=== PATIENT | female | born 1985 | race Caucasian/White ===

== ENCOUNTER 2017-04-01 23:34 | Emergency (ER) | payer BC, MEDICAID ==
[2017-04-01 23:53] VITALS: BP 161/121
--- NOTE | 2017-04-02 00:53 | EDM.PDOC ---
ED HPI GENERAL MEDICAL PROBLEM - General Chief Complaint: General Stated Complaint: "drainage from incision" Time Seen by Provider: 04/02/17 00:10 - History of Present Illness INITIAL COMMENTS - FREE TEXT/NARRATIVE: Patient had nine days ago with post-op wound vac. This was removed three days ago. Within the last 24 hours, patient has developed redness and swelling of anterior abdominal wall and profuse drainage from the left side of the incision. Onset: Gradual Onset Date: 03/31/17 Duration: Day(s): Location: Reports: Abdomen Quality: Reports: Ache Severity: Mild Improves with: Reports: None Worsens with: Reports: None Context: Reports: Other (C section nine days ago) Associated Symptoms: Reports: No Other Symptoms, Fever/Chills Left Abdomen Pain Score (Numeric/FACES): 5 - Related Data Allergies Allergy/AdvReac Type Severity Reaction Status Date / Time amoxicillin [Amoxicillin] Allergy Rash Verified 04/01/17 23:38 cefaclor [From Ceclor] Allergy Rash Verified 04/01/17 23:38 Penicillins Allergy Rash Verified 04/01/17 23:38 Home Meds: Home Meds oxyCODONE HCl/Acetaminophen [oxyCODONE-Acetaminophen 5-325] 1 - 2 tab PO Q6H PRN 04/01/17 [History] 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: , 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 - Past Surgical History HEENT Surgical History: Reports: Adenoidectomy, Oral Surgery, Tonsillectomy GI Surgical History: Reports: Cholecystectomy Female Surgical History: Reports: Section Social & Family History - Family History Family Medical History: Noncontributory - Tobacco Use Smoking Status *Q: Never Smoker Second Hand Smoke Exposure: No - Caffeine Use Caffeine Use: Reports: Coffee, Tea - Recreational Drug Use Recreational Drug Use: No ED ROS GENERAL - Review of Systems Review Of Systems: See Below Constitutional: Reports: Fever HEENT: Reports: No Symptoms Respiratory: Reports: No Symptoms Cardiovascular: Reports: No Symptoms Endocrine: Reports: No Symptoms GI/Abdominal: Reports: Abdominal Pain : Reports: No Symptoms Musculoskeletal: Reports: No Symptoms Skin: Reports: Erythema (redness and drainage from c section abdominal incision) Neurological: Reports: No Symptoms Psychiatric: Reports: No Symptoms Hematologic/Lymphatic: Reports: No Symptoms Immunologic: Reports: No Symptoms ED EXAM, GENERAL - Physical Exam Exam: See Below Exam Limited By: No Limitations General Appearance: Alert, WD/WN, No Apparent Distress Eye Exam: Bilateral Eye: EOMI, PERRL Ears: Normal External Exam, Normal Canal, Hearing Grossly Normal, Normal TMs Ear Exam: Bilateral Ear: Auricle Normal, Canal Normal, TM normal Nose: Normal Inspection, Normal Mucosa, No Blood Throat/Mouth: Normal Inspection, Normal Lips, Normal Teeth, Normal Gums, Normal Oropharynx, Normal Voice, No Airway Compromise Head: Atraumatic, Normocephalic Neck: Normal Inspection, Supple, Non-Tender, Full Range of Motion Respiratory/Chest: No Respiratory Distress, Lungs Clear, Normal Breath Sounds Cardiovascular: Normal Peripheral Pulses, Regular Rate, Rhythm, No Edema, No Gallop, No JVD, No Murmur, No Rub GI/Abdominal: Normal Bowel Sounds (patient has low anterior horizontal C- section incision with nabor. There is dehisence of several nabor on the left side with fairly profuse, serosanguinous cloudy drainage. The Lower abdominal wall is erythematous with induration especially on the left side of the incision. The area of cellulitis and induration extends about 8+ inches above the incision across the whole anterior abdominal wall. The periphery is marked. Tender with palpation. ) (Female) Exam: Deferred Rectal (Female) Exam: Deferred Back Exam: Normal Inspection Extremities: Normal Inspection, Normal Range of Motion, Non-Tender, Normal Capillary Refill, No Pedal Edema Neurological: Oriented, Normal Cognition, Normal Gait Psychiatric: Normal Affect, Normal Mood Skin Exam: Warm, Dry, Erythema, Wound/Incision, Other (see note above) Lymphatic: No Adenopathy Course - Vital Signs Last Recorded V/S: Last Vital Signs Temp 37.7 C 04/01/17 23:42 Pulse 94 04/01/17 23:42 Resp 18 04/01/17 23:42 BP 161/121 H 04/01/17 23:42 Pulse Ox 96 04/01/17 23:42 - Orders/Labs/Meds Labs: Laboratory Tests 04/02/17 04/02/17 Range/Units 01:00 01:00 WBC 13.3 H (5.0-10.0) 10^3/uL RBC 3.76 L (4.00-5.50) 10^6/uL Hgb 10.6 L (12.0-16.0) g/dL Hct 36.4 L (37.0-47.0) % MCV 96.8 H (82.0-94.0) fL MCH 28.2 (27.0-32.0) pg MCHC 29.1 L (33.0-38.0) g/dL RDW Coeff of Sravanthi 14.1 (11.0-15.0) % Plt Count 418 H (150-400) 10^3/uL Neut % (Auto) 78.2 (35-85) % Lymph % (Auto) 13.3 (10-55) % [place] % (Auto) 6.3 (0-16) % Eos % (Auto) 1.9 (0-5) % Baso % (Auto) 0.3 (0-3) % Neut # (Auto) 10.41 H (1.80-7.00) 10^3/uL Lymph # (Auto) 1.77 (1.00-4.80) 10^3/uL [place] # (Auto) 0.84 H (0.00-0.80) 10^3/uL Eos # (Auto) 0.25 (0.00-0.45) 10^3/uL Baso # (Auto) 0.04 10^3/uL Sodium 142 (136-145) mEq/L Potassium 3.7 (3.5-5.0) mEq/L Chloride 107 H (98-106) mEq/L Carbon Dioxide 24 (21-32) mmol/L BUN 11 (7-18) mg/dL Creatinine 1.0 (0.6-1.0) mg/dL Est Cr Clr Drug Dosing 99.98 mL/min Estimated GFR (MDRD) > 60 (>=60) mL/min Glucose 117 H (75-99) mg/dL Calcium 8.6 (8.4-10.1) mg/dL C-Reactive Protein 27.3 H (0.2-0.8) mg/dL Meds: Medications Discontinued Medications Generic Name Dose Route Start Last Admin Trade Name Freq PRN Reason Stop Dose Admin Levofloxacin/Dextrose 750 mg/ 150 mls @ 100 mls/hr 04/02/17 01:10 04/02/17 01 :15 Premix IV 04/02/17 02:39 100 mls/hr ONETIME ONE Administration - Re-Assessments/Exams Free Text/Narrative Re-Assessment/Exam: 04/02/17 01:29 Labs ordered but were unable to draw blood due to difficult vein access. The area of drainage between the loosened staple was thoroughly cleansed with betadyne and alcohol and a would culture was obtained . The sterile swab was able to be easily inserted 1/2 inch into the opening and let loose a small gush of serosanguinous purulent discharge. IV was started and patient given [id number] mg IV. I contacted [facility] as patients surgery had been done there by Dr Roy. Dr Ashley Charles was covering for surgery and agreed to accept the patient in transfer. Risks versus benefits of transfer discussed with patient. Benefits include transfer to a hospital with surgical coverage which is not available here. Risks include travel problems, weather issues and deterioration in condition during transfer. Patient verbalized understanding of this information. Departure - Departure Time of Disposition: 03:45 Disposition: DC/Tfer to [facility] Condition: Good Clinical Impression: Postoperative wound infection Qualifiers: Encounter type: initial encounter Qualified Code(s): T81.4XXA - Infection following a procedure, initial encounter - Discharge Information Referrals: Marlen Pulido PA [Family Provider] - Forms: ED Department Discharge Additional Instructions: Go directly to [facility]. You will see Dr Charles there. She is the program manager environmental planning surgeon and will evaluate you there. Please do not eat or drink anything along the way in case you need to be sedated.
[2017-04-02] MEDS ORDERED: Levofloxacin/Dextrose 5%-Water 750 MG in Premix Bag 1 BAG IV ONE (01:10)
[2017-04-02 01:51] LABS: CHLORIDE,CL 107 mEq/L (98-106); SODIUM,NA 142 mEq/L (136-145)
== END 2017-04-02 03:00 | disposition critical access hospital (66) ==
LOC: CC.ED 23:34
DX: O86.0 Infection of obstetric surgical wound (principal); Z88.1 Allergy status to other antibiotic agents; Z88.0 Allergy status to penicillin; Z88.8 Allergy status to other drugs, medicaments and biological substances; Z90.89 Acquired absence of other organs; Z90.49 Acquired absence of other specified parts of digestive tract
CPT/HCPCS: 36415; 80048; 85025; 86140; 87070; 87077; 96365; 99284; J1956

== ENCOUNTER 2017-04-08 09:25 | Emergency (ER) | payer MEDICAID ==
[2017-04-08 09:33] VITALS: BP 151/69
--- NOTE | 2017-04-08 09:56 | EDM.PDOC ---
ED HPI GENERAL MEDICAL PROBLEM - General Chief Complaint: General Stated Complaint: incisional issue Time Seen by Provider: 04/08/17 09:37 Source of Information: Reports: Patient History Limitations: Reports: No Limitations - History of Present Illness INITIAL COMMENTS - FREE TEXT/NARRATIVE: Patient presents with concerns in regards to her post op wound infection. has been doing wet to dry dressing changes twice a day since Sunday. He states that with the gauze they have from [facility], doesn't seem to be absorbing the drainage as well and now the wound looks worse. She is unable to visualize the area due to location. Denies increased pain. Has been taking the Cipro as directed. No fevers. 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), Other Medication(s) Other Treatments FELLER SEAM OPERATOR: cipro Incisional Pain Score (Numeric/FACES): 2 - Related Data Allergies Allergy/AdvReac Type Severity Reaction Status Date / Time amoxicillin [Amoxicillin] Allergy Rash Verified 04/08/17 09:33 cefaclor [From Ceclor] Allergy Rash Verified 04/08/17 09:33 Penicillins Allergy Rash Verified 04/08/17 09:33 Home Meds: Home Meds oxyCODONE HCl/Acetaminophen [oxyCODONE-Acetaminophen 5-325] 1 - 2 tab PO Q6H PRN 04/01/17 [History] Hydrocodone/Acetaminophen [Hydrocodon-Acetaminophen 5-325] 1 tab PO Q6H PRN 02/15 [History] 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: , 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 - Past Surgical History HEENT Surgical History: Reports: Adenoidectomy, Oral Surgery, Tonsillectomy GI Surgical History: Reports: Cholecystectomy Female Surgical History: Reports: Section Social & Family History - Family History Family Medical History: Noncontributory - Tobacco Use Smoking Status *Q: Never Smoker Second Hand Smoke Exposure: No - Caffeine Use Caffeine Use: Reports: Coffee, Tea - Recreational Drug Use Recreational Drug Use: No ED ROS GENERAL - Review of Systems Review Of Systems: See Below Constitutional: Denies: Fever, Chills, Malaise, Weakness, Decreased Appetite HEENT: Reports: No Symptoms Respiratory: Denies: Shortness of Breath, Cough Cardiovascular: Denies: Chest Pain, Edema, Lightheadedness Endocrine: Reports: No Symptoms GI/Abdominal: Reports: Abdominal Pain (post op incisional pain). Denies: Constipation, Diarrhea, Decreased Appetite, Nausea, Vomiting : Reports: No Symptoms Musculoskeletal: Reports: No Symptoms Skin: Reports: Wound Neurological: Reports: No Symptoms ED EXAM, GENERAL - Physical Exam Exam: See Below Exam Limited By: No Limitations General Appearance: Alert, WD/WN, No Apparent Distress GI/Abdominal: Normal Bowel Sounds, Soft, Tender Neurological: Alert, Oriented Skin Exam: Other (Old packing removed from wound, does have serosanguinous drainage noted. Wound is red, granulating but improved from my evaluation on when I changed the packing. Wound repacked with wet to dry dressing.) Course - Vital Signs Last Recorded V/S: Last Vital Signs Temp 97.8 F 04/08/17 09:29 Pulse 73 04/08/17 09:29 Resp 20 04/08/17 09:29 BP 151/69 H 04/08/17 09:29 Pulse Ox 97 04/08/17 09:29 Departure - Departure Time of Disposition: 10:10 Disposition: Home, Self-Care 01 Condition: Good Clinical Impression: Postoperative wound infection Qualifiers: Encounter type: initial encounter Qualified Code(s): T81.4XXA - Infection following a procedure, initial encounter - Discharge Information Forms: ED Department Discharge Additional Instructions: 1. Keep wound clean and dry 2. Continue with wet to dry dressings, packing as directed. 3. Finish Cipro 4. Follow up on Sunday as planned to remove rest of nabor.
== END 2017-04-08 10:21 | disposition home or self-care (01) ==
LOC: CC.ED 09:25
DX: T81.4XXA Infection following a procedure, initial encounter (principal); Z88.1 Allergy status to other antibiotic agents; Z88.0 Allergy status to penicillin
CPT/HCPCS: 99282

== ENCOUNTER → 2021-11-24 | Day surgery (SDC) | payer MEDICAID ==
[~2021-11-24] MED LIST: Ketamine 200 MG/20 ML MDV ONE; Lactated Ringers 1,000 ML IV SCH; Lidocaine 0.5% 50 ML SDV ONE; Lidocaine 1% with EPINEPHrine 1:100,000 20 ML MDV INJECT ONE; Midazolam 1 MG/ML 2 ML SDV ONE; Ondansetron 4 MG/2 ML SDV ONE; Propofol 200 MG/20 ML SDV ONE; fentaNYL 100 MCG/2 ML SDV ONE
[2021-11-24 18:30] VITALS: BP 123/76; PULSE 66
== END ==
LOC: CC.SDS 11:36
PROVIDERS: ATTEND Surgery
DX: M67.431 Ganglion, right wrist (principal); E66.01 Morbid (severe) obesity due to excess calories; K21.9 Gastro-esophageal reflux disease without esophagitis; G43.909 Migraine, unspecified, not intractable, without status migrainosus; Z98.890 Other specified postprocedural states; Z88.1 Allergy status to other antibiotic agents; Z79.899 Other long term (current) drug therapy; Z88.0 Allergy status to penicillin; Z88.8 Allergy status to other drugs, medicaments and biological substances; Z68.43 Body mass index [BMI] 50.0-59.9, adult
CPT/HCPCS: 01810; 36415; 84703; J2250; J2405; J2704; J3010; J7120

== ENCOUNTER 2022-11-19 19:02 | Emergency (ER) | payer MEDICAID ==
[2022-11-19 19:07] VITALS: PULSE 82
[2022-11-19] MEDS: Take Home: predniSONE 20 MG, 2 Tab Pack PO ONE (19:20)
[2022-11-19] MEDS: Cefuroxime 250 MG Tab PO STA (19:20)
[2022-11-19 19:28] VITALS: BP 154/94
== END 2022-11-19 19:29 | disposition home or self-care (01) ==
LOC: CC.ED 19:02
DX: J40 Bronchitis, not specified as acute or chronic (principal); J01.00 Acute maxillary sinusitis, unspecified; Z88.0 Allergy status to penicillin; Z88.1 Allergy status to other antibiotic agents; Z79.899 Other long term (current) drug therapy
CPT/HCPCS: 99283; A9270-GY; J7512